=== PATIENT | male | born 1975 ===

== ENCOUNTER 2019-03-01 03:59 | Outpatient (CLI) | payer MEDICARE, MEDICAID | END 2019-03-01 23:59 | disposition home or self-care (01) | LOC: DIABETIC 03:59 | PROVIDERS: ATTEND Specialist | DX: E10.65 Type 1 diabetes mellitus with hyperglycemia (principal); E10.319 Type 1 diabetes mellitus with unspecified diabetic retinopathy without macular edema; E10.40 Type 1 diabetes mellitus with diabetic neuropathy, unspecified; E10.21 Type 1 diabetes mellitus with diabetic nephropathy; E10.59 Type 1 diabetes mellitus with other circulatory complications; E10.43 Type 1 diabetes mellitus with diabetic autonomic (poly)neuropathy; K31.84 Gastroparesis; E10.22 Type 1 diabetes mellitus with diabetic chronic kidney disease; I12.9 Hypertensive chronic kidney disease with stage 1 through stage 4 chronic kidney disease, or unspecified chronic kidney disease; N18.9 Chronic kidney disease, unspecified; E78.5 Hyperlipidemia, unspecified; Z79.4 Long term (current) use of insulin | CPT/HCPCS: G0108 ==